=== PATIENT | female | born 1995 | race Caucasian/White ===

== ENCOUNTER 2022-02-09 18:44 | Outpatient (CLI) | payer OTHER ==
--- NOTE | 2022-02-10 09:47 | Ultrasound Report ---
PROCEDURE: OB First Trimester w/TV INDICATIONS: POSITIVE TEST OUTSIDE/PRIOR DATING DATA: Last menstrual period (LMP): 12/12/2021. LMP-based estimated date of delivery (GARCÍA): 09/18/2022. First dating scan (date and location): 02/09/2022. Estimated date of delivery (GARCÍA) from first dating scan: 09/27/2022. The below data below was generated using the study generated GARCÍA of 09/27/2022 TECHNIQUE: Real-time scanning was performed of the fetus and maternal pelvic organs, with image documentation. Endovaginal scanning was also performed to better visualize the fetus and maternal ovaries. COMPARISON: None FINDINGS: Embryo: Single intrauterine gestational sac is seen with fetus and yolk sac seen. [place]-rump length measures 1.02 cm. Estimated gestational age is 7 weeks, 1 day. Heart rate: 148 bpm. There is a large subchorionic hemorrhage measures 3.4 x 1.9 x 3.2 cm in size. Measurement variability in dating: +/- 4 weeks by LMP, +/- 7 days by mean sac diameter (use before 6 weeks gestation if crown-rump length not able to be measured), +/- 5 days by crown-rump length (6-12 weeks gestation). Maternal organs: Corpus luteal cyst is seen in left ovary measures 2.5 x 2.5 x 4 cm in size. Simple c yst is also noted in left ovary measures 1.8 x 2.3 x 1.9 cm in size. Trace amount of fluid is noted w ithin posterior cul-de-sac. IMPRESSION: 1. Single live intrauterine gestation with fetus and yolk sac seen. heart rate is 148 bpm. Kera mated gestational age is 7 weeks, 1 day. 2. Large subchorionic hemorrhage as above. 3. Corpus luteum and simple cyst in left ovary as described above. Reviewed by: Jerry Pal MD on 02/10/2022 9:45 AM PDT Approved by: Jerry Pal MD on 02/10/2022 9:45 AM PDT Station ID: [id number]
== END 2022-02-09 18:45 | disposition home or self-care (01) ==
LOC: DI 18:44
PROVIDERS: ATTEND Nurse Practitioner
DX: O20.8 Other hemorrhage in early pregnancy (principal); O34.81 Maternal care for other abnormalities of pelvic organs, first trimester; N83.12 Corpus luteum cyst of left ovary; Z3A.01 Less than 8 weeks gestation of pregnancy

== ENCOUNTER 2022-02-14 14:36 | Outpatient (CLI) | payer OTHER ==
[2022-02-14 18:02] LABS: BASOPHILS % (AUTO) 0.3 %; EOSINOPHILS # (AUTO) 0.1 10^3/uL (0.0-0.7); HCT - HEMATOCRIT 34.7 % (37.0-47.0); HGB - HEMOGLOBIN 12.2 g/dL (12.0-16.0); LYMPHOCYTES # (AUTO) 1.9 10^3/uL (1.5-3.5); LYMPHOCYTES % (AUTO) 24.2 %; MEAN CORPUSCULAR HEMOGLOBIN 30.3 pg (27.0-31.0); MEAN CORPUSCULAR HGB CONC 35.2 g/dL (32.0-36.0); MEAN CORPUSCULAR VOLUME 86.3 fL (81.0-99.0); MEAN PLATELET VOLUME 12.4 fL (7.9-10.8); MONOCYTES # (AUTO) 0.6 10^3/uL (0.0-1.0); NEUTROPHILS # (AUTO) 5.1 10^3/uL (1.5-6.6); NEUTROPHILS % (AUTO) 66.2 %; PLT - PLATELET COUNT 300 10^3/uL (130-450); RED BLOOD COUNT 4.02 10^6/uL (4.20-5.40); RED CELL DISTRIBUTION WIDTH 11.9 % (12.0-15.0); WHITE BLOOD COUNT 7.7 x10^3/uL (4.8-10.8)
[2022-02-14 18:36] LABS: BILIRUBIN,URINE NEGATIVE (NEGATIVE); GLUCOSE, URINE (UA) NEGATIVE (NEGATIVE); KETONES,URINE (UA) NEGATIVE (NEGATIVE); LEUKOCYTE ESTERASE, URINE NEGATIVE (NEGATIVE); NITRITE,URINE NEGATIVE (NEGATIVE); OCCULT BLOOD,URINE NEGATIVE (NEGATIVE); PROTEIN,URINE NEGATIVE (NEGATIVE); UROBILINOGEN,URINE 0.2 (NORMAL) E.U./dL (NORMAL)
[2022-02-14 18:38] LABS: CLARITY,URINE CLOUDY (CLEAR)
[2022-02-14 18:49] LABS: AMORPHOUS SEDIMENT,UR Marked /LPF; BACTERIA,URINE Few /HPF (None Seen); RBC,URINE None Seen /HPF (0-5); SQUAMOUS EPITHELIAL CELL,UR FEW Squamous (<= Few); WBC,URINE 0-3 /HPF (0-5)
[2022-02-16 06:09] LABS: HBsAG SCREEN Negative (Negative); HCV AB <0.1 s/co ratio (0.0-0.9); HIV SCREEN 4TH GENERATION Non Reactive (Non Reactive); RPR Non Reactive (Non Reactive)
[2022-02-16 10:09] LABS: VARICELLA-ZOSTER AB IGG 292 index (Immune >165)
== END 2022-02-14 14:37 | disposition home or self-care (01) ==
LOC: LAB.N 14:36
PROVIDERS: ATTEND Nurse Practitioner
DX: Z36.89 Encounter for other specified antenatal screening (principal); Z32.01 Encounter for pregnancy test, result positive
CPT/HCPCS: 36415; 81001; 85025; 86592; 86762; 86787; 86803; 86850; 86900; 86901; 87086; 87340; 87389

== ENCOUNTER 2022-02-23 16:05 | Outpatient (CLI) | payer OTHER ==
[2022-02-24 23:57] LABS: CHLAMYDIA TRACHOMATIS DNA NEGATIVE (NEGATIVE); NEISSERIA GONORRHOEAE DNA NEGATIVE (NEGATIVE); TRICHOMONAS VAGINALIS DNA NEGATIVE (NEGATIVE)
== END 2022-02-23 23:59 | disposition home or self-care (01) ==
LOC: LAB.R 16:05
PROVIDERS: ATTEND Nurse Practitioner
DX: Z11.3 Encounter for screening for infections with a predominantly sexual mode of transmission (principal)
CPT/HCPCS: 87491; 87591; 87661

== ENCOUNTER 2022-03-02 12:48 | Outpatient (CLI) | payer OTHER ==
--- NOTE | 2022-03-02 17:18 | Ultrasound Report ---
PROCEDURE: OB First Trimester INDICATIONS: subchronic hematoma OUTSIDE/PRIOR DATING DATA: Last menstrual period (LMP): 12/12/2021. LMP-based estimated date of delivery (GARCÍA): 09/18/2022. First dating scan (date and location): 02/09/2022. Estimated date of delivery (GARCÍA) from first dating scan: 09/27/2022. The below data below was generated using the ultrasound GARCÍA of or 2623 TECHNIQUE: Real-time scanning was performed of the fetus and maternal pelvic organs, with image documentation. COMPARISON: OB ultrasound 02/09/2022 FINDINGS: Embryo: Single live intrauterine is identified with crown-rump length measuring 3.8 cm cor responding to 10 weeks 5 days. This corresponds to dates and initial ultrasound from 10 weeks 1 day. Small subchorionic hemorrhage is present mildly decreased in size measuring 3.0 x 2.5 x 1.3 cm. Heart rate: 169 beats per minutes. Measurement variability in dating: +/- 4 weeks by LMP, +/- 7 days by mean sac diameter (use before 6 weeks gestation if crown-rump length not able to be measured), +/- 5 days by crown-rump length (6-12 weeks gestation). Maternal organs: Ovaries demonstrate a left ovarian cyst.. IMPRESSION: Single live intrauterine with ultrasound gestational age of 10 weeks 5 days today. Persistent although decreased appearance of subchorionic hemorrhage. Reviewed by: Tere Barnhart MD on 03/02/2022 5:17 PM PDT Approved by: Tere Barnhart MD on 03/02/2022 5:17 PM PDT Station ID: [id number]
== END 2022-03-02 12:49 | disposition home or self-care (01) ==
LOC: DI 12:48
PROVIDERS: ATTEND Nurse Practitioner
DX: O46.8X1 Other antepartum hemorrhage, first trimester (principal); Z3A.10 10 weeks gestation of pregnancy

== ENCOUNTER 2022-03-20 16:19 | Outpatient (CLI) | payer OTHER | END 2022-03-20 16:20 | disposition home or self-care (01) | LOC: LAB.N 16:19 → LAB 16:20 | PROVIDERS: ATTEND Nurse Practitioner | DX: Z36.89 Encounter for other specified antenatal screening (principal) ==

== ENCOUNTER 2022-04-20 15:45 | Outpatient (CLI) | payer OTHER ==
[2022-04-25 11:09] LABS: AFP VALUE 37.4 ng/mL (.); DIA MOM 1.04 (.); DSR (BY AGE) 1 IN 977 (.); DSR (SECOND TRIMESTER) 1 IN 2593 (.); GEST. AGE ON COLLECTION DATE 19.4 WEEKS (.); HCG MOM 0.75 (.); HCG VALUE 17435 mIU/mL (.); INSULIN DEP DIABETES No (.); MATERNAL AGE AT EDD 26.1 yr (.); OPEN SPINA BIFIDA RISK 1 IN 10000 (.); RACE Caucasian (.); RESULTS Report (.); TEST RESULTS *Screen Negative* (.); TRISOMY 18 RISK Not increased (.); UE3 VALUE 1.14 ng/mL (.); WEIGHT 194 lbs (.)
== END 2022-04-20 15:46 | disposition home or self-care (01) ==
LOC: LAB 15:45
PROVIDERS: ATTEND Nurse Practitioner
DX: Z36.89 Encounter for other specified antenatal screening (principal)
CPT/HCPCS: 36415; 81511

== ENCOUNTER 2022-05-05 18:48 | Outpatient (CLI) | payer OTHER ==
--- NOTE | 2022-05-05 22:53 | Ultrasound Report ---
PROCEDURE: OB Detailed Eval INDICATIONS: SUPERVISION OF OUTSIDE/PRIOR DATING DATA: Last menstrual period (LMP): 12/12/2021. LMP-based estimated date of delivery (GARCÍA): 09/18/2022. First dating scan (date and location): 02/09/2022. Estimated date of delivery (GARCÍA) from first dating scan: 09/27/2022. The below data below was generated using the ultrasound GARCÍA of 09/27/2022 TECHNIQUE: Real-time scanning was performed of the fetus, with image documentation and biometric measurements. Endovaginal scanning: Not performed COMPARISON: OB ultrasound 03/02/2022 FINDINGS: General: A single living intrauterine gestation is present. Presentation: Breech Placenta: Placental position is fundal, without previa. Amniotic fluid index: 14.4 cm, normal for gestational age. heart rate: 140 beats per minute. Maternal cervical canal: 4.5 cm long; normal length is 2.5 cm or more. biometrics: Biparietal diameter: 4.97 cm, 21 weeks 0 days Head circumference: 18.5 cm, 20 weeks 6 days Abdominal circumference: 15.0 cm, 20 weeks 2 days Femur length: 2.95 cm, 19 weeks 1 day Estimated gestational age from initial scan: 19 weeks 2 days. Composite gestational age from present scan: 20 weeks 1 day Estimated weight and percentile: 318 g, 79th percentile for gestational age. Measurement variability in biometric dating: +/- 10 days from 12-20 weeks gestation, +/- 2 weeks from 20-30 weeks gestation, +/- 3 weeks at 30 weeks gestation or later. Anatomic survey: Neuro: Ventricles are normal at less than 10 mm. Cisterna magna is normal at 3-11 mm. Cerebellum i s normal in size and morphology. Nuchal skin fold: Normal at less than 6 mm between 14 and 20 weeks gestational age. Face: Nose and lips, facial profile are normal. Spine: Sacral spine is well visualized due to positioning. Heart: 4-chambered heart is present, with normal ventricular outflow tracts. Diaphragm: Diaphragm is intact. Stomach: Left-sided stomach is present. Kidneys: Borderline left pelviectasis measuring up to 4 mm. Right renal pelvis is within normal limit s. Cord: 3 vessel cord has orthotopic insertion. Bladder: Normal in size. Extremities: All 4 extremities are visualized. IMPRESSION: 1.Single live intrauterine with appropriate interval growth. 2. spine not well visualized. Recommend follow-up exam. 3.Borderline left pelviectasis, with renal pelvis measuring 4 mm in anteroposterior dimension. Recomm end attention on follow-up exam. 4.Otherwise, anatomic survey is within normal limits. Reviewed by: Waqar Olivier MD on 05/05/2022 10:52 PM PST Approved by: Waqar Olivier MD on 05/05/2022 10:52 PM PST Station ID: [id number]
== END 2022-05-05 18:49 | disposition home or self-care (01) ==
LOC: DI 18:48
PROVIDERS: ATTEND Obstetrics & Gynecology
DX: Z34.92 Encounter for supervision of normal pregnancy, unspecified, second trimester (principal)

== ENCOUNTER 2022-06-13 17:12 | Outpatient (CLI) | payer OTHER ==
--- NOTE | 2022-06-14 10:29 | Ultrasound Report ---
PROCEDURE: OB F/U or Repeat INDICATIONS: SUPERVISION OF OUTSIDE/PRIOR DATING DATA: Last menstrual period (LMP): 12/12/2021. LMP-based estimated date of delivery (GARCÍA): 09/18/2022. First dating scan (date and location): 02/09/2022. Estimated date of delivery (GARCÍA) from first dating scan: 09/27/2022. The below data below was generated using the ultrasound GARCÍA of 09/27/2022 TECHNIQUE: Real-time scanning was performed of the fetus, with image documentation and biometric measurements. Endovaginal scanning: Not performed. COMPARISON: OB ultrasound 05/05/2022 FINDINGS: General: A single living intrauterine gestation is present. Presentation: Variable Placenta: Placental position is fundal, without previa. Amniotic fluid index: 20.3 cm, normal for gestational age. Single deepest vertical fluid pocket is 6.6 cm. heart rate: 140 beats per minute. Maternal cervical canal: 5.2 cm long; normal length is 2.5 cm or more. biometrics: Biparietal diameter: 6.7 cm, 26 weeks 6 days Head circumference: 24.5 cm, 26 weeks 5 days Abdominal circumference: 21.6 cm, 26 weeks 1 day Femur length: 4.6 cm, 25 weeks 2 days Estimated gestational age from initial scan: 24 weeks 6 days Composite gestational age from present scan: 26 weeks 2 days Estimated weight and percentile: 871 g, 86th percentile Measurement variability in biometric dating: +/- 10 days from 12-20 weeks gestation, +/- 2 weeks from 20-30 weeks gestation, +/- 3 weeks at 30 weeks gestation or more. Other: spine appears normal without signs of meningocele. Renal pelvises are within normal limi ts. IMPRESSION: 1.Single live intrauterine . 2.Estimated weight is 871 g, 86th percentile for gestational age based on ultrasound GARCÍA. 3. spine and renal pelvises are within normal limits. Reviewed by: Waqar Olivier MD on 06/14/2022 10:27 AM PST Approved by: Wqaar Olivier MD on 06/14/2022 10:27 AM PST Station ID: [id number]
== END 2022-06-13 17:13 | disposition home or self-care (01) ==
LOC: DI 17:12
PROVIDERS: ATTEND Nurse Practitioner
DX: Z34.92 Encounter for supervision of normal pregnancy, unspecified, second trimester (principal)

== ENCOUNTER 2022-06-23 13:06 | Outpatient (CLI) | payer OTHER ==
[2022-06-23 18:32] LABS: HCT - HEMATOCRIT 32.2 % (37.0-47.0); HGB - HEMOGLOBIN 10.7 g/dL (12.0-16.0); MEAN CORPUSCULAR HEMOGLOBIN 29.8 pg (27.0-31.0); MEAN CORPUSCULAR HGB CONC 33.2 g/dL (32.0-36.0); MEAN CORPUSCULAR VOLUME 89.7 fL (81.0-99.0); MEAN PLATELET VOLUME 11.8 fL (7.9-10.8); RED BLOOD COUNT 3.59 10^6/uL (4.20-5.40); RED CELL DISTRIBUTION WIDTH 12.5 % (12.0-15.0); WHITE BLOOD COUNT 9.6 x10^3/uL (4.8-10.8)
== END 2022-06-23 13:07 | disposition home or self-care (01) ==
LOC: LAB.N 13:06
PROVIDERS: ATTEND Obstetrics & Gynecology
DX: Z34.90 Encounter for supervision of normal pregnancy, unspecified, unspecified trimester (principal)
CPT/HCPCS: 36415; 82950; 85027; 86850